=== PATIENT | male | born 1945 | race Caucasian/White ===

== ENCOUNTER → 2019-10-28 | Day surgery (SDC) | payer MEDICARE, OTHER ==
[2019-10-23 10:03] LABS: BASOPHILS # (AUTO) 0.1 (0.0-0.1); EOSINOPHILS # (AUTO) 0.4 (0.0-0.4); EOSINOPHILS % 5.8 % (0.0-6.0); HEMATOCRIT 43.4 % (38.2-49.6); HEMOGLOBIN 13.9 g/dL (14.0-18.0); LYMPHOCYTES # (AUTO) 1.4 (1.0-3.2); LYMPHOCYTES % 17.9 % (18.0-39.1); MEAN CORPUSCULAR HEMOGLOBIN 28.3 pg (28-32); MEAN CORPUSCULAR VOLUME 88.4 fL (81-99); MONOCYTES # (AUTO) 0.8 (0.2-0.8); MONOCYTES % 10.6 % (4.4-11.3); NEUTROPHILS # (AUTO) 4.9 (2.1-6.9); NEUTROPHILS % 63.7 % (38.7-80.0); PLATELET COUNT 199 x10e3/uL (140-360); RED BLOOD COUNT 4.91 x10e6/uL (4.3-5.7); RED CELL DISTRIBUTION WIDTH 13.6 % (11.7-14.4)
--- NOTE | 2019-10-23 11:11 | Diagnostic Imaging Report ---
EXAM: CHEST 2 VIEWS DATE: 10/23/2019 10:33 AM INDICATION: Preoperative evaluation COMPARISON: None FINDINGS: The trachea is midline. The lungs are symmetrically expanded without evidence for large focal consolidation, pneumothorax, or significant pleural effusion. The cardiomediastinal silhouette and pulmonary vasculature are within normal limits. No acute osseous abnormality is identified. The surrounding soft tissues are unremarkable. IMPRESSION: No acute cardiopulmonary process identified. Signed by: Dr. Ang Bernard MD on 10/23/2019 11:08 AM
[~2019-10-28] MED LIST: ASPIRIN81 MG PO; CLINDAMYCIN 600MG / 50ML 50 ML IV ONE; CRESTOR10 MG PO; DEXAMETHASONE SOD PHOS INJ 4 MG/ML VIAL ONE; FENTANYL CITRATE/PF 100MCG/2 ML INJ ONE; GLYCOPYRROLATE INJ 0.2 MG/ML VIAL ONE; KETOROLAC TROMETHAMINE 30 MG/ML VIAL ONE; LIDOCAINE 1% W/EPINEPHRINE 20 ML VIAL ONE; LIDOCAINE HCL 2% LOCAL INJ 5 ML SDV VIAL INJ ONE; LISINOPRIL10 MG PO; MELATONIN3 MG PO; MUPIROCIN 2% OINT 22 GM TUBE ONE; NEOSTIGMINE 1 MG/ML 10ML VIAL ONE; ONDANSETRON HCL INJ 2MG/ML 2ML 2 MG/ML VIAL ONE; PROPOFOL IV EMULSION 10 MG/ML 20 ML VIAL ONE; ROCURONIUM BROMIDE 10 MG/ML 5ML VIAL IV ONE; SEVOFLURANE INHAL SOLN 250 ML PEN BTL ONE
[2019-10-28 09:39] VITALS: BP 108/71
--- NOTE | 2019-10-28 14:13 | Operative Report ---
DATE OF PROCEDURE: 10/28/2019 SURGEON: Petar Gutierrez MD PREOPERATIVE DIAGNOSIS: Neoplasm of uncertain behavior, lower lip. POSTOPERATIVE DIAGNOSIS: Neoplasm of uncertain behavior, lower lip, pending final pathology. PROCEDURES: Excision of neoplasm, lower lip, frozen section and flap closure. ANESTHESIA: General. 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 The patient states that approximately 3 to 4 months ago he noticed a mass developing right in the region of the previous excision. The risks, benefits, and alternatives were discussed with the patient and it was felt that resection of the lesion with frozen section identification to see whether this was a recurrence would be the best choice. The risks, benefits, and alternatives of treatment were discussed and the patient was prepared to undergo the procedure as outlined. PROCEDURE IN DETAIL: The patient was marked preoperatively in the holding area. He was brought to the operating theater and after the induction of adequate general anesthesia, he was prepped and draped in a supine position and a time-out was performed. The neoplasm was marked out. Approximately a 5 mm margin on each side was made and then the area was infiltrated with 1% Xylocaine with epinephrine. After waiting an appropriate amount of time for maximum vasoconstrictive effect, the incision was made through the mucosa down to the subcutaneous tissue down to the level of the orbicularis marine muscle. The lesion was then removed from the muscle and then oriented with sutures and sent for frozen section. In the meantime, the wound bed was made hemostatic with the electrocautery. Frozen section report comes back and there was no malignancy seen. Some dense cicatrix was present, but final pathology will need to be performed. At this point, the mucosa of the lower lip is undermined and freed from the surrounding orbicularis marine muscle and then the wound was sutured using 5-0 chromic in an interrupted horizontal mattress fashion. Bactroban ointment was applied to the incision. The estimated blood loss of procedure was 5 to 10 mL. The patient tolerated the procedure well and was brought to recovery room in satisfactory condition and discharged with a postoperative instruction sheet as well as a followup appointment. Petar Gutierrez MD ER/MODL /[id number]
== END | disposition home or self-care (01) ==
LOC: OR 05:19
PROVIDERS: ATTEND Plastic Surgery
DX: D37.01 Neoplasm of uncertain behavior of lip (principal); Z85.819 Personal history of malignant neoplasm of unspecified site of lip, oral cavity, and pharynx; I10 Essential (primary) hypertension; E78.5 Hyperlipidemia, unspecified; M54.2 Cervicalgia; M54.9 Dorsalgia, unspecified; Z88.0 Allergy status to penicillin; Z88.7 Allergy status to serum and vaccine; Z01.810 Encounter for preprocedural cardiovascular examination; Z01.812 Encounter for preprocedural laboratory examination; Z01.818 Encounter for other preprocedural examination; Z11.59 Encounter for screening for other viral diseases; Z79.82 Long term (current) use of aspirin
CPT/HCPCS: 20999; 36415; 71046; 85025; 88307; 88331; 93005; J1100; J1885; J2001; J2405; J2704; J2710; U0002; 88305